=== PATIENT | female | born 1935 | race Caucasian/White ===

== ENCOUNTER → 2019-08-11 18:41 | Outpatient (CLI) | payer MEDICARE, BC ==
[2019-08-11 19:13] LABS: BASOPHILS 0.3 % (0-2); EOSINOPHILS 1.4 % (0-7); HEMATOCRIT 40.6 % (36.0-48.0); HEMOGLOBIN 13.4 g/dL (12-16); IMMATURE GRANULOCYTES 0.2 % (0-5); LYMPHOCYTES 19.9 % (15-50); MCH 29.6 pg (26.0-34.0); MCV 89.8 fL (80.0-100.0); MEAN PLATELET VOLUME 8.8 fL (7.4-10.4); NEUTROPHILS 68.2 % (40-80); PLATELET COUNT 274 10x3/uL (130-400); RBC 4.52 10x6/uL (4.00-5.40); WBC 5.9 10x3/uL (4.8-10.8)
[2019-08-13 05:08] LABS: IMMUNOGLOBULIN G 1027 mg/dL (586-1602)
[2019-08-14 21:06] LABS: IMMUNOGLOBULIN E 6 IU/mL (6-495)
== END | disposition home or self-care (01) ==
LOC: D.LABREF 18:41
PROVIDERS: ATTEND Internal Medicine Pulmonary Disease
DX: J20.9 Acute bronchitis, unspecified (principal)